=== PATIENT | female | born 1955 | race Caucasian/White ===

== ENCOUNTER → 2021-12-11 08:05 | Outpatient (BNVA) | payer MEDICARE, SELFPAY | PROVIDERS: PCP Nurse Practitioner Adult Health; Visit Provider Psychiatry & Neurology Neurology | DX: R26.9 Unspecified abnormalities of gait and mobility (principal); R47.1 Dysarthria and anarthria; R42 Dizziness and giddiness; R06.83 Snoring; Z79.899 Other long term (current) drug therapy | CPT/HCPCS: 99212 ==

== ENCOUNTER 2022-01-14 17:36 | Outpatient (REF) | payer MEDICARE, OTHER, SELFPAY | END 2022-01-14 17:37 | disposition home or self-care (01) | LOC: HO.MRI 17:36 | PROVIDERS: Visit Provider Psychiatry & Neurology Neurology | DX: Z13.89 Encounter for screening for other disorder (principal) ==

== ENCOUNTER 2022-01-21 12:35 | Outpatient (REF) | payer MEDICARE, OTHER, SELFPAY ==
--- NOTE | ~2022-01-21 | XR_ITS ---
EXAMINATION: XR PRE MRI SCREENING CLINICAL INFORMATION: 66-year-old for pre-MRI screening with radiographs. COMPARISON: None TECHNIQUE: There are 5 radiographs obtained: AP and lateral skull, frontal chest, frontal abdomen, and frontal pelvis. FINDINGS: There is no significant metallic foreign body or electronic device. Incidental surgical clips right upper quadrant abdomen likely from prior cholecystectomy. Bowel gas unremarkable. The calvarium is unremarkable. The visualized sinuses are clear. Lungs are clear. Heart size normal. There is bulky calcific tendinosis left shoulder and some trace calcific tendinosis right shoulder. XR/XR pre mri screening IMPRESSION: -Surgical clips right upper quadrant abdomen likely from prior cholecystectomy. -No significant metallic foreign body or electronic device. -Calcific tendinosis rotator cuff bilateral shoulders, greater on left.
--- NOTE | ~2022-01-21 | MR_ITS ---
EXAMINATION: MR BRAIN WITHOUT CONTRAST CLINICAL INFORMATION: 66-year-old with unspecified abnormalities of gait and mobility. COMPARISON: None TECHNIQUE: Multiplanar multisequence MR imaging of the brain was done without IV contrast. FINDINGS: BRAIN VOLUME: Ykbn-ne-kdbrmgni generalized diffuse brain parenchymal volume loss is noted within the limitations of a qualitative assessment. There appears to be somewhat disproportionate midbrain and pontine/medullary volume loss, which should be correlated with neurological examination. STRUCTURAL: Partially empty sella. BRAIN AND MENINGES: DWI sequence demonstrates no restricted diffusion to suggest acute or subacute cerebral ischemia. Scattered punctate FLAIR/T2 signal hyperintensities are seen in the subcortical and deeper white matter of both cerebral hemispheres which are nonspecific findings but probably reflect minimal foci of chronic ischemic microangiopathy. Scattered perivascular spaces are seen in the basal ganglia and within the centrum semiovale white matter and posterior white matter bilaterally. Gradient refocused imaging demonstrates no evidence for hemorrhage, hemosiderin staining or abnormal mineral deposition. No extra-axial fluid collections, space-occupying process or mass effect are identified. VENTRICLES AND SUBARACHNOID SPACES: The ventricular system and subarachnoid spaces are consistent with volume loss without hydrocephalus. ORBITAL STRUCTURES: Right-sided lens extraction noted. Otherwise, the visualized orbital structures are grossly unremarkable within the limitations of the study. VASCULAR: Signal voids are noted in the visualized major intracranial vessels. OSSEOUS STRUCTURES, SINUSES/MASTOIDS, EXTRACRANIAL SOFT TISSUES: Osseous marrow signal intensity appears grossly unremarkable. There is minor mucosal thickening in the ethmoid complex. Mild nasal septal deviation to the left. Minimal secretions in the right mastoid tip. MR/MR head/brain wo con IMPRESSION: 1. Qxcy-nw-wabgeavy generalized diffuse brain parenchymal volume loss with suspicion for disproportionate midbrain and pontomedullary volume loss, with diffuse cerebellar hemispheric and vermian volume loss as well. 2. Mild chronic ischemic microangiopathy in the white matter of both cerebral hemispheres with no evidence for acute or subacute infarct, hemorrhage, extra-axial fluid collection, space-occupying process, mass effect or hydrocephalus.
== END 2022-01-21 12:36 | disposition home or self-care (01) ==
LOC: HO.MRI 12:35
PROVIDERS: Visit Provider Psychiatry & Neurology Neurology
DX: R26.9 Unspecified abnormalities of gait and mobility (principal); R47.1 Dysarthria and anarthria; R42 Dizziness and giddiness
CPT/HCPCS: 70551

== ENCOUNTER → 2022-02-17 09:46 | Outpatient (REF) | payer MEDICARE, OTHER, SELFPAY | LOC: HO.SL 09:46 | PROVIDERS: PCP Nurse Practitioner Adult Health; Visit Provider Psychiatry & Neurology Neurology | DX: Z13.89 Encounter for screening for other disorder (principal) ==

== ENCOUNTER → 2022-03-18 14:05 | Outpatient (BNVA) | payer MEDICARE, OTHER, SELFPAY | PROVIDERS: PCP Nurse Practitioner Adult Health; Visit Provider Psychiatry & Neurology Neurology | DX: G23.1 Progressive supranuclear ophthalmoplegia [Steele-Richardson-Olszewski] (principal); G47.00 Insomnia, unspecified; R47.1 Dysarthria and anarthria; R41.3 Other amnesia; Z79.899 Other long term (current) drug therapy; Z79.4 Long term (current) use of insulin | CPT/HCPCS: 99212 ==

== ENCOUNTER → 2022-03-20 09:59 | Outpatient (REF) | payer MEDICARE, OTHER, SELFPAY | LOC: HO.SL 09:59 | PROVIDERS: PCP Nurse Practitioner Adult Health; Visit Provider Psychiatry & Neurology Neurology | DX: Z13.89 Encounter for screening for other disorder (principal) ==

== ENCOUNTER → 2022-06-02 19:30 | Outpatient (REF) | payer MEDICARE, OTHER, SELFPAY | LOC: HO.SL 19:30 | PROVIDERS: PCP Nurse Practitioner Adult Health; Visit Provider Psychiatry & Neurology Neurology | DX: G47.33 Obstructive sleep apnea (adult) (pediatric) (principal) | CPT/HCPCS: 95810 ==

== ENCOUNTER → 2022-07-22 12:57 | Outpatient (BNVA) | payer MEDICARE, OTHER, SELFPAY | PROVIDERS: PCP Nurse Practitioner Adult Health; Visit Provider Psychiatry & Neurology Neurology | DX: G23.1 Progressive supranuclear ophthalmoplegia [Steele-Richardson-Olszewski] (principal); R47.1 Dysarthria and anarthria; R41.3 Other amnesia; G47.33 Obstructive sleep apnea (adult) (pediatric); G47.00 Insomnia, unspecified; R20.0 Anesthesia of skin; E11.65 Type 2 diabetes mellitus with hyperglycemia; Z99.89 Dependence on other enabling machines and devices; Z79.4 Long term (current) use of insulin | CPT/HCPCS: 99212 ==

== ENCOUNTER 2022-10-02 08:19 | Outpatient (REF) | payer MEDICARE, OTHER, SELFPAY ==
--- NOTE | 2022-10-02 08:22 | EMG_ITS ---
Bilateral tibial and peroneal motor studies were performed. Bilateral sural and superficial peroneal sensory studies were performed. Tibial H reflexes were obtained and paraspinal muscles were tested with a needle. IMPRESSION: 1. 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 2. 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 MD AMY Fernandez/LILLY / [id number]
== END 2022-10-02 08:20 | disposition home or self-care (01) ==
LOC: HO.NEURO 08:19
PROVIDERS: Visit Provider Psychiatry & Neurology Neurology
DX: R20.0 Anesthesia of skin (principal)
CPT/HCPCS: 95886; 95911

== ENCOUNTER → 2022-11-18 12:59 | Outpatient (BNVA) | payer MEDICARE, OTHER, SELFPAY | PROVIDERS: Visit Provider Psychiatry & Neurology Neurology | DX: G23.1 Progressive supranuclear ophthalmoplegia [Steele-Richardson-Olszewski] (principal); G47.00 Insomnia, unspecified; G47.33 Obstructive sleep apnea (adult) (pediatric); R47.1 Dysarthria and anarthria; R41.3 Other amnesia | CPT/HCPCS: 99212 ==

== ENCOUNTER 2023-05-21 14:47 | Outpatient (AMB) | payer MEDICARE, OTHER, SELFPAY ==
--- NOTE | 2023-05-21 15:25 | MHC.OFFVIS ---
Intake Vital Signs 05/21/23 15:32 Height 5 ft 4 in Weight 162 lb BMI 27.8 BP 116/60 Blood Pressure Location Rt brachial Position Sitting Respiration 14 Pulse 94 Pulse Source Pulse Oximeter Pulse Oximetry (%) 97 Oxygen Delivery Method Room Air Intake Visit Reasons: 6m follow up Intake Note: Pt presents to the office for a 6 month follow up for Dysarthria. She is here with her spouse Andrea who is also her historian. He reports she is slowing down and her speech is not so great , it's becoming difficult to hear and understand her. Her appetite has diminished but he denies issues with sleep. Gait is increasingly unsteady. Allergies No Known Allergies Allergy (Verified 05/21/23 15:31) Medication List - Last Reconciled 05/21/23 by Micaela Franco MD albuterol sulfate 90 mcg/actuation 2 inhalations inhalation Q6H PRN aspirin (Adult Low Dose Aspirin) 81 mg PO DAILY atorvastatin 40 mg PO BEDTIME carbidopa-levodopa 25-100 mg (Sinemet) 2 tabs PO QID furosemide 20 mg PO DAILY glimepiride 2 mg PO DAILY insulin glargine (Lantus Solostar U-100 Insulin) 10 units subcut QPM levothyroxine 137 mcg PO DAILY lisinopril 20 mg PO DAILY omeprazole 20 mg PO DAILY oxybutynin chloride ER 10 mg PO DAILY trazodone 50 mg PO BEDTIME PRN HPI HPI Comments History of Present Illness Details 68y/o female with dizziness, vertigo, gait abnormality, dysarthria, gait disorder comes for follow up.. 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 she denies any double vision now. she has constipation but responds to treatment. No falls she uses a walker She has a nurse and health aide. 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 she sleeps on her side she reports numbness in her left leg Her diabetes is poorly controlled [facility] Medical History Diabetes Depression Memory loss Thyroid disease HTN (hypertension) Vertigo Social History Alcohol intake: never Patient Tobacco Use Status: Never used Tobacco Physical Exam Vital Signs: Last Vital Signs Pulse 94 05/21/23 15:32 Resp 14 05/21/23 15:32 BP 116/60 05/21/23 15:32 Pulse Ox 97 05/21/23 15:32 Oxygen Delivery Method Room Air 05/21/23 15:32 BMI result Body Mass Index 27.8 Const General: cooperative and comfortable Nutritional Appearance: overweight Orientation/consciousness: patient oriented x3 Neuro Other: Dysarthria No tremors FFM and foot taps decreased nanda Decreased facial expression and blink mild decreased upgaze Normal lateral gaze and down gaze- facial dystonia Gait- with walker slow, mild wide based and unstable General: patient oriented x3, tone normal and moves all extremities Assessment & Plan Assessment & Plan (1) 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): Code(s): G23.1 - Progressive supranuclear ophthalmoplegia [Dwain] (2) Dysarthria: Code(s): R47.1 - Dysarthria and anarthria (3) Memory loss: Code(s): R41.3 - Other amnesia (4) Insomnia: Code(s): G47.00 - Insomnia, unspecified (5) Obstructive sleep apnea: Code(s): G47.33 - Obstructive sleep apnea (adult) (pediatric) Plan Increase sinemet 25/100 2 .5 tabs qid continue trazodone 50mg qhs EMG left lE- discussed results does not want to use CPAP - suggested to sleep on the side 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
[2023-05-21 15:32] VITALS: BP 116/60; PULSE 94; RESP 14; O2SAT 97; BMI 27.8
== END 2023-05-21 15:44 | disposition home or self-care (01) ==
PROVIDERS: Visit Provider Psychiatry & Neurology Neurology
DX: G23.1 Progressive supranuclear ophthalmoplegia [Steele-Richardson-Olszewski] (principal); R47.1 Dysarthria and anarthria; R41.3 Other amnesia; G47.00 Insomnia, unspecified; G47.33 Obstructive sleep apnea (adult) (pediatric)
CPT/HCPCS: 99214

== ENCOUNTER → 2023-05-21 14:47 | Outpatient (BNVA) | payer MEDICARE, OTHER, SELFPAY | PROVIDERS: Visit Provider Psychiatry & Neurology Neurology | DX: R47.1 Dysarthria and anarthria (principal); G23.1 Progressive supranuclear ophthalmoplegia [Steele-Richardson-Olszewski]; R41.3 Other amnesia; G47.00 Insomnia, unspecified; G47.33 Obstructive sleep apnea (adult) (pediatric); Z79.899 Other long term (current) drug therapy | CPT/HCPCS: 99212 ==

== ENCOUNTER 2024-07-18 12:56 | Outpatient (AMB) | payer MEDICARE, OTHER, SELFPAY ==
--- NOTE | 2024-07-18 13:08 | MHC.OFFVIS ---
Vital Signs 07/18/24 13:14 Height 5 ft 4 in Weight 160 lb BMI 27.5 Intake Visit Reasons: Follow Up Intake Note: Patient presents for follow up Allergies No Known Allergies Allergy (Verified 07/18/24 13:12) Medication List - Last Reconciled 07/18/24 by Micaela Franco MD albuterol sulfate 90 mcg/actuation 2 inhalations inhalation Q6H PRN aspirin (Adult Low Dose Aspirin) 81 mg PO DAILY atorvastatin 40 mg PO BEDTIME carbidopa-levodopa 25-100 mg (Sinemet) 2.5 tabs PO .5 times a day furosemide 20 mg PO DAILY glimepiride 2 mg PO DAILY insulin glargine (Lantus Solostar U-100 Insulin) 10 units subcut QPM levothyroxine 137 mcg PO DAILY lisinopril 20 mg PO DAILY omeprazole 20 mg PO DAILY oxybutynin chloride ER 10 mg PO DAILY trazodone 50 mg PO BEDTIME PRN HPI Comments Details: 69y/o female with dizziness, vertigo, gait abnormality, dysarthria, gait disorder comes for follow up. 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 No major change since last year . she had 2 falls related to hypoglycemia. Her insulin dose was changed and she is doing better.she denies any double vision now. she has constipation but responds to treatment. she walks with walker. she is independent in most ADLS. She has a nurse and health aide. 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 she sleeps on her side she reports numbness in her left leg PFSH Medical History Diabetes Depression Memory loss Thyroid disease HTN (hypertension) Vertigo Social History Alcohol intake: never Patient Tobacco Use Status: Never used Tobacco Physical Exam Vital Signs: BMI result Body Mass Index 27.5 Const General: cooperative and comfortable Nutritional Appearance: overweight Orientation/consciousness: patient oriented x3 Neuro Other: Dysarthria No tremors FFM and foot taps decreased nanda Decreased facial expression and blink mild decreased upgaze Normal lateral gaze and down gaze- facial dystonia General: patient oriented x3, tone normal and moves all extremities Assessment & Plan Assessment & Plan (1) 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): Code(s): G23.1 - Progressive supranuclear ophthalmoplegia [Dwain] Category: Medical (2) Dysarthria: Code(s): R47.1 - Dysarthria and anarthria Category: Medical (3) Memory loss: Code(s): R41.3 - Other amnesia Category: Medical (4) Insomnia: Code(s): G47.00 - Insomnia, unspecified Category: Medical (5) Obstructive sleep apnea: Code(s): G47.33 - Obstructive sleep apnea (adult) (pediatric) Category: Medical Plan Increase sinemet 25/100 2 .5 tabs 5 times a day continue trazodone 50mg qhs EMG left lE- discussed results does not want to use CPAP - suggested to sleep on the side 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
[2024-07-18 13:14] VITALS: BMI 27.5
== END 2024-07-18 13:34 | disposition home or self-care (01) ==
LOC: HO.HSMS 12:56
PROVIDERS: Visit Provider Psychiatry & Neurology Neurology
DX: G23.1 Progressive supranuclear ophthalmoplegia [Steele-Richardson-Olszewski] (principal); R47.1 Dysarthria and anarthria; R41.3 Other amnesia; G47.00 Insomnia, unspecified; G47.33 Obstructive sleep apnea (adult) (pediatric)
CPT/HCPCS: 99214; G2211

== ENCOUNTER → 2024-07-18 12:56 | Outpatient (BNVA) | payer MEDICARE, OTHER, SELFPAY | PROVIDERS: Visit Provider Psychiatry & Neurology Neurology | DX: G23.1 Progressive supranuclear ophthalmoplegia [Steele-Richardson-Olszewski] (principal); G47.00 Insomnia, unspecified; G47.33 Obstructive sleep apnea (adult) (pediatric); R47.1 Dysarthria and anarthria; R41.3 Other amnesia | CPT/HCPCS: 99212 ==

== ENCOUNTER 2025-07-19 10:09 | Outpatient (AMB) | payer MEDICARE, OTHER, SELFPAY ==
--- NOTE | 2025-07-19 10:11 | A.OFFVIS_ITS ---
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 Accompanied by: Friend Allergies No Known Allergies Allergy (Verified 07/19/25 10:11) Medication List - Last Reconciled 07/19/25 by Micaela Franco MD albuterol sulfate 90 mcg/actuation 2 inhalations inhalation Q6H PRN aspirin (Adult Low Dose Aspirin) 81 mg PO DAILY atorvastatin 40 mg PO BEDTIME carbidopa-levodopa 25-100 mg (Sinemet) 2.5 tabs PO .5 times a day citalopram 10 mg PO DAILY furosemide 20 mg PO DAILY glimepiride 2 mg PO DAILY insulin glargine (Lantus Solostar U-100 Insulin) 10 units subcut QPM levothyroxine 137 mcg PO DAILY lisinopril 20 mg PO DAILY omeprazole 20 mg PO DAILY oxybutynin chloride ER 10 mg PO DAILY trazodone 50 mg PO BEDTIME PRN HPI Comments Details: 70y/o female with dizziness, vertigo, gait abnormality, dysarthria, gait disorder comes for follow up after 1 year she had 2 falls since last visit- 1 fall was in the shower. 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 No major change since last year . she had 2 falls related to hypoglycemia. Her insulin dose was changed and she is doing better.she denies any double vision now. she has constipation but responds to treatment. she walks with walker. she is independent in most ADLS. She has a nurse and health aide. 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 she sleeps on her side she reports numbness in her left leg [facility] Medical History (Updated 07/19/25 @ 13:22 by Micaela Franco MD) Pseudobulbar affect Diabetes Depression Memory loss Thyroid disease HTN (hypertension) Vertigo Social History Alcohol intake: never Patient Tobacco Use Status: Never used Tobacco Physical Exam Const General: cooperative and comfortable Nutritional Appearance: overweight Orientation/consciousness: patient oriented x3 Neuro Other: Dysarthria No tremors FFM and foot taps decreased nanda Decreased facial expression and blink mild decreased upgaze Normal lateral gaze and down gaze- facial dystonia General: patient oriented x3, tone normal and moves all extremities Assessment & Plan Assessment & Plan (1) 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): Code(s): G23.1 - Progressive supranuclear ophthalmoplegia [[id number]] Category: Medical (2) Dysarthria: Code(s): R47.1 - Dysarthria and anarthria Category: Medical (3) Memory loss: Code(s): R41.3 - Other amnesia Category: Medical (4) Insomnia: Code(s): G47.00 - Insomnia, unspecified Category: Medical (5) Obstructive sleep apnea: Code(s): G47.33 - Obstructive sleep apnea (adult) (pediatric) Category: Medical (6) Pseudobulbar affect: Code(s): F48.2 - Pseudobulbar affect Category: Medical Plan sinemet 25/100 2 .5 tabs 5 times a day continue trazodone 50mg qhs I will trial her on citalopram 10 mg qd for Pseudobulbar effect. 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
[2025-07-19 10:31] VITALS: BP 116/74; PULSE 92; O2SAT 97
== END 2025-07-19 10:39 | disposition home or self-care (01) ==
LOC: HO.HSMS 10:09
PROVIDERS: Visit Provider Psychiatry & Neurology Neurology
DX: G23.1 Progressive supranuclear ophthalmoplegia [Steele-Richardson-Olszewski] (principal); R47.1 Dysarthria and anarthria; R41.3 Other amnesia; G47.00 Insomnia, unspecified; G47.33 Obstructive sleep apnea (adult) (pediatric); F48.2 Pseudobulbar affect
CPT/HCPCS: 99214; G2211

== ENCOUNTER → 2025-07-19 10:09 | Outpatient (BNVA) | payer MEDICARE, OTHER, SELFPAY | PROVIDERS: Visit Provider Psychiatry & Neurology Neurology | DX: G23.1 Progressive supranuclear ophthalmoplegia [Steele-Richardson-Olszewski] (principal); R47.1 Dysarthria and anarthria; R41.3 Other amnesia; G47.00 Insomnia, unspecified; G47.33 Obstructive sleep apnea (adult) (pediatric); Z99.89 Dependence on other enabling machines and devices; F48.2 Pseudobulbar affect | CPT/HCPCS: 99212 ==